=== PATIENT | male | born 1965 | race Caucasian/White ===

== ENCOUNTER 2017-01-23 22:52 | Emergency (ER) | payer OTHER ==
[~2017-01-23 22:52] MED LIST: ANTIVERT12.5 MG PO; DEC150 PO; FIORICET1 TAB PO; FLO4 PO; GLYBURIDE5 MG PO; LASIX20 MG PO; METFORMIN ER500 M1 PO; METFORMIN HCL500 MG PO; MOTRIN600 MG PO; PEP20 PO; ROB750 PO; SOD1 PO
[2017-01-24 00:54] LABS: BASOPHIL % 0.6 % (0-2); PLATELET COUNT 254 x10^3mcL (130-400); RED CELL DISTRIBUTION WIDTH 13.1 % (11.5-14.5)
[2017-01-24 01:13] LABS: CALCIUM 8.3 mg/dL (8.5-10.1); CARBON DIOXIDE 28.3 mmol/L (21-32); CHLORIDE SERUM 108 mmol/L (98-107); CREATININE SERUM 0.9 mg/dL (0.7-1.3); GFR1 > 60 mL/min; GLUCOSE SERUM 117 mg/dL (74-106); POTASSIUM SERUM 3.9 mmol/L (3.5-5.1); SODIUM SERUM 144 mmol/L (136-145)
[2017-01-24 01:17] LABS: ALBUMIN 3.8 g/dL (3.4-5.0); ALKALINE PHOSPHATASE 67 U/L (46-116); ALT/SGPT 30 U/L (16-63); AST/SGOT 27 U/L (15-37); BILIRUBIN TOTAL 0.75 mg/dL (0.20-1.00); LIPASE 149 IU/L (73-393); TOTAL PROTEIN, SERUM 7.1 g/dL (6.4-8.2)
[2017-01-24 02:35] VITALS: BP 130/87
== END 2017-01-24 02:35 | disposition home or self-care (01) ==
LOC: ED 22:52
PROVIDERS: Emergency Medicine
DX: R07.89 Other chest pain (principal); M25.512 Pain in left shoulder; E11.9 Type 2 diabetes mellitus without complications; E87.1 Hypo-osmolality and hyponatremia; Z98.890 Other specified postprocedural states
CPT/HCPCS: J1885